=== PATIENT | female | born 1980 | race Caucasian/White ===

== ENCOUNTER → 2023-07-17 | Outpatient (CLI) | payer MEDICARE, MEDICAID, SELFPAY ==
--- NOTE | 2023-07-17 08:55 | MRI_ITS ---
STUDY: MRI CERVICAL SPINE WITHOUT CONTRAST REASON FOR EXAM: Female, 43 years old. Spondylosis with radiculopathy. TECHNIQUE: Standardized fat and water weighted pulse sequences were obtained in the sagittal and axial planes. COMPARISON: None FINDINGS: Normal foramen magnum and brainstem-cervical cord junction. Normal craniovertebral junction. Normal anterior atlantoaxial articulation. Normal odontoid process. Straightening of the C-spine curvature. Normal vertebral bodies and posterior osseous elements. C2-3: Normal endplates. Normal disc height, signal and morphology. Normal central canal and intervertebral neural foramina. C3-4: Normal endplates. Normal disc height, signal and morphology. Normal central canal and intervertebral neural foramina. C4-5: Normal endplates. Normal disc height, signal and morphology. Normal central canal and intervertebral neural foramina. C5-6: Normal endplates. Mild disc space narrowing. Mild ventral extradural defect due to posterior bulging annulus. Normal central canal and intervertebral neural foramina. C6-7: Normal endplates. Mild disc space height narrowing. Mild ventral extradural defects due to posterior bulging annulus. Normal central canal and intervertebral neural foramina. C7-T1: Normal endplates. Normal disc height, signal and morphology. Normal central canal and intervertebral neural foramina. T1-T2: (Sagittal only). Normal T1 inferior endplate. Old anterior wedge compression fracture of the upper T2 vertebral body causing increased anterior disc space height. No ventral extradural defect. The most central canal and intervertebral neural foramina. T2-T3: (Sagittal only). Normal T2 inferior endplate. Mild old anterior wedge compression fracture of the upper T3 vertebral body causing increased anterior disc space height. No ventral extradural defect. Normal central canal and intervertebral neural foramina. T3-T4 and T4-T5: (Sagittal only). Normal endplates. Normal disc height, signal and morphology. Normal central canal and intervertebral neural foramina. Normal cervical cord. Normal upper thoracic spinal cord. Normal excluded brainstem and cerebellum. Normal midline pituitary gland, suprasellar cistern and anterior third ventricle. Normal visualized soft tissue structures. MRI/Spine Cervical (Routine) IMPRESSION: 1. No MR evidence of cervical extruded disc fragment, disc protrusion, spinal stenosis or cervical nerve root displacement. 2. Old anterior compression fractures of the upper T2 vertebral body and the upper T3 vertebral body. 3. Normal cervical spinal cord. Electronically Signed: Wes Lee MD at 9:27 EDT ,
== END | disposition home or self-care (01) ==
LOC: MRI 08:55
PROVIDERS: PCP Physician Assistant Medical; Referring Provider Anesthesiology; Visit Provider Anesthesiology
DX: M47.22 Other spondylosis with radiculopathy, cervical region (principal)
CPT/HCPCS: 72141

== ENCOUNTER 2024-06-02 08:21 | Day surgery (SDC) | payer MEDICARE, MEDICAID, SELFPAY ==
--- NOTE | 2024-05-29 14:49 | PAT.ANE_ITS ---
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 When Was Last Pacemaker Check QUESTION #4 FULL TEXT: You/Your Family Experience fever (hyperthermia) with Anesthesia Last Oral Intake Last Oral intake: Last Oral Intake NPO since Meds taken in AM with sips of water? Meds patient instructed to take am of surgery PONV PONV - air carrier maintenance inspector: PONV - air carrier maintenance inspector Female Yes 05/29/24 13:46 HX of Motion Sickness No 05/29/24 13:46 HX of N/V After Surgery No 05/29/24 13:46 Non-Smoker No 05/29/24 13:46 Duration of Surgery greater Yes 05/29/24 13:46 than 60 minutes Number of Risk Factors 2 05/29/24 13:46 PONV Score Moderate Risk 05/29/24 13:46 Respiratory Assessment Respiratory Assessment - air carrier maintenance inspector: Respiratory Tract Infection Hx - air carrier maintenance inspector Hx Respiratory Tract Infection No 05/29/24 13:46 STOP Sleep Apnea STOP Sleep Apnea - air carrier maintenance inspector: STOP Sleep Apnea - air carrier maintenance inspector Hx Hypertension No 05/29/24 13:46 Hx Sleep Apnea No 05/29/24 13:46 CPAP BIPAP Do you snore loudly (louder No 05/29/24 13:46 than talking or can be heard Do you often feel tired/ No 05/29/24 13:46 fatigued/ sleepy during daytime? Has anyone observed you stop No 05/29/24 13:46 breathing during sleep? STOP Results Negative 05/29/24 13:46 QUESTION #5 FULL TEXT : Do you snore loudly (louder than talking or can be heard through closed doors)? 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 Specify any problems Hx of Preganancy in last 3 No 05/29/24 13:46 Months Nurse Filling Out Transfusion VCHRISTIN 05/29/24 13:46 & Questions: Date: 05/29/24 05/29/24 13:46 Time: 13:47 05/29/24 13:46 Patient unable to answer at this time (ie. confused, unrespo /Reproduction History /Reproductive History - air carrier maintenance inspector: /Reproductive Hx- air carrier maintenance inspector Hx Now No 05/29/24 13:46 Gestational Age (in weeks): EDC: Hx Hx Para Hx Section SAB No 05/29/24 13:46 [facility] Medical History (Updated 05/29/24 @ 13:45 by Charley Montano) Wears partial dentures Wears glasses Marijuana use Arthritis Easy bruising Excessive bleeding Back pain Injury of back Migraine headache History of IBS Gastric reflux Smoker Leg cramps History of echocardiogram History of stress test Hypertension History of heart attack Cardiology follow-up encounter History of irregular heartbeat History of steroid therapy Home Medications ?Medication ?Instructions ?Recorded ?Last Taken ?Type aspirin 81 mg tablet,delayed 81 mg PO DAILY 05/29/24 U nknown History release atomoxetine 60 mg capsule 60 mg PO DAILY 05/29/24 Unkn own History atorvastatin 80 mg tablet 80 mg PO QHS 05/29/24 Unknow n History biotin 1 mg capsule 1 mg PO DAILY 05/29/24 Unkno wn History clopidogrel 75 mg tablet 75 mg PO DAILY 05/29/24 Unkn own History evolocumab 140 mg/mL subcutaneous 140 mg subcut .Q2 WE EKS 05/29/24 Unknown History pen injector (Keenan Denny) famotidine 20 mg tablet 20 mg PO DAILY 05/29/24 Unkn own History fenofibrate nanocrystallized 145 145 mg PO DAILY 05/29 Unknown History mg tablet icosapent ethyl 1 gram capsule 2 g PO BID 05/29/24 Unk nown History magnesium 200 mg tablet 200 mg PO DAILY 05/29/24 Unk nown History metoprolol succinate 25 mg 25 mg PO QHS 05/29/24 Unkno wn History tablet,extended release 24 hr [id number] 1 cap PO DAILY 05/29/24 Unknown History pantoprazole 40 mg tablet,delayed 40 mg PO DAILY 05/29 Unknown History release pregabalin 150 mg capsule 150 mg PO TID PRN PRN pain 0 05/29/24 Unknown History tizanidine 4 mg tablet 4 - 8 mg PO TID PRN PRN musc le 05/29/24 Unknown History spasticity Allergy/AdvReac Type Severity Reaction Status Date / Time amoxicillin Allergy Severe PT UNSURE Verified 05/29/24 13:20 OF REACTION Penicillins (PCN) Allergy Severe PT UNSURE Verified 05/29/24 13:20 OF REACTION Surgical History (Updated 05/29/24 @ 13:45 by Charley Montano) History of cardiac catheterization History of coronary artery stent placement Social History Smoking Status: Current every day smoker tobacco type: cigarettes Audit: Pertinent Findings Pertinent Findings Consult pertinent findings: Cardiology 03/24/2024 follow-up for cardiovascular disease coronary artery disease status post PCI to RCA with 2 MARIN 09/22/2023 echo obtained 10/07/2023 showed normal with EF of 60 to 65% doing well stable Recommendation Anesthesia Recommendation Anesthesia recommendation: OPTIMIZED for anesthesia
[2024-06-02] VITALS (11 sets, daily range): BP systolic 87–114; BP diastolic 64–86; PULSE 71–90; RESP 16–18; TEMP 36.2–36.4; O2SAT 92–100; BMI 24.9
[2024-06-02] MEDS: 0.9% Normal Saline (1000mL) 1,000 ML 15 ML IV (09:01)
[2024-06-02] MEDS: Acetaminophen 500 MG Tablet 1000 MG PO (09:02)
[2024-06-02] MEDS: Gabapentin 600 MG Tablet PO (09:02)
[2024-06-02 09:13] LABS: Magnesium 2.3 mg/dL (1.6-2.6)
--- NOTE | 2024-06-02 09:15 | PCM.PRE.AN2 ---
ASA Classification* ASA Classification ASA Classification: 3 Assessment & Plan Anesthesia* Anesthesia Assessment Anesthesia Assessment: Discussed sedation and/or anesthesia options, risks, benefits, and alternatives with patient/parents/legal guardian/POA. Questions invited. The patient/parents/legal guardian/POA seems to understand and agrees to proceed with anesthesia plan. Reviewed the physical assessment, medical history, allergy history and patient home medications list prior to surgery/procedure/anesthetic and documented any changes. Performed airway and anesthesia risk assessments. 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 When Was Last Pacemaker Check QUESTION #4 FULL TEXT: You/Your Family Experience fever (hyperthermia) with Anesthesia Last Oral Intake Last Oral intake: Last Oral Intake NPO since 00:00 06/02/24 08:45 Meds taken in AM with sips of water? Meds patient instructed to take am of surgery PONV PONV - mechanical inspector: PONV - mechanical inspector Female Yes 05/29/24 13:46 HX of Motion Sickness No 05/29/24 13:46 HX of N/V After Surgery No 05/29/24 13:46 Non-Smoker No 05/29/24 13:46 Duration of Surgery greater Yes 05/29/24 13:46 than 60 minutes Number of Risk Factors 2 05/29/24 13:46 PONV Score Moderate Risk 05/29/24 13:46 Height & Weight Height & Weight: Anesthesia: Height & Weight Height 5 ft 4 in 06/02/24 08:45 Weight: 65.771 kg 06/02/24 08:45 Body Mass Index (BMI) 24.9 06/02/24 08:45 Respiratory Assessment Respiratory Assessment - mechanical inspector: Respiratory Tract Infection Hx - mechanical inspector Hx Respiratory Tract Infection No 05/29/24 13:46 STOP Sleep Apnea STOP Sleep Apnea - mechanical inspector: STOP Sleep Apnea - mechanical inspector Hx Hypertension No 05/29/24 13:46 Hx Sleep Apnea No 05/29/24 13:46 CPAP BIPAP Do you snore loudly (louder No 05/29/24 13:46 than talking or can be heard Do you often feel tired/ No 05/29/24 13:46 fatigued/ sleepy during daytime? Has anyone observed you stop No 05/29/24 13:46 breathing during sleep? STOP Results Negative 05/29/24 13:46 QUESTION #5 FULL TEXT : Do you snore loudly (louder than talking or can be heard through closed doors)? 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 Specify any problems Hx of Preganancy in last 3 No 05/29/24 13:46 Months Nurse Filling Out Transfusion VCHRISTIN 05/29/24 13:46 & Questions: Date: 05/29/24 05/29/24 13:46 Time: 13:47 05/29/24 13:46 Patient unable to answer at this time (ie. confused, unrespo /Reproduction History /Reproductive History - mechanical inspector: /Reproductive Hx- mechanical inspector Hx Now No 05/29/24 13:46 Gestational Age (in weeks): EDC: Hx Hx Para Hx Section SAB No 05/29/24 13:46 Active Medications Active Medications: Current Medications Generic Name Dose Route Start Last Admin Trade Name Freq PRN Reason Stop Dose Admin Acetaminophen 1,000 mg 06/02/24 10:30 06/02/24 09:02 Acetaminophen 500 Mg Tablet PO 06/02/24 10:31 1,000 mg X1 ONE Administration Gabapentin 600 mg 06/02/24 10:30 06/02/24 09:02 Gabapentin 600 Mg Tablet PO 06/02/24 10:31 600 mg X1 ONE Administration Clindamycin Phosphate 900 mg in 50 mls @ 75 mls/hr 06/02/24 10:30 Cleocin IV 06/02/24 11:09 PREOP ONE Sodium Chloride 1,000 mls @ 15 mls/hr 06/02/24 08:30 06/02/24 09:01 IV 06/07/24 21:49 15 mls/hr .Q48H PRANAY Administration Protocol Insulin Human Lispro 1 - 6 unit 06/02/24 10:30 Insulin Lispro 100 Unit/Ml Insuln.Pen SC 06/02/24 16:00 Q4H PRN PRN BG>/= 180, SEE PROTOCOL Protocol PFSH Medical History Wears partial dentures Wears glasses Marijuana use Arthritis Easy bruising Excessive bleeding Back pain Injury of back Migraine headache History of IBS Gastric reflux Smoker Leg cramps History of echocardiogram History of stress test Hypertension History of heart attack Cardiology follow-up encounter History of irregular heartbeat History of steroid therapy Home Medications ?Medication ?Instructions ?Recorded ?Last Taken ?Type aspirin 81 mg tablet,delayed 81 mg PO DAILY 05/29/24 05/29/24 History release atomoxetine 60 mg capsule 60 mg PO DAILY 05/29/24 Unknown History atorvastatin 80 mg tablet 80 mg PO QHS 05/29/24 06/01/24 History biotin 1 mg capsule 1 mg PO DAILY 05/29/24 Unknown History clopidogrel 75 mg tablet 75 mg PO DAILY 05/29/24 05/29/24 History evolocumab 140 mg/mL subcutaneous 140 mg subcut .Q2 WEEKS 05/29/24 05/14/24 History pen injector (Keenan Denny) famotidine 20 mg tablet 20 mg PO DAILY 05/29/24 Unknown History fenofibrate nanocrystallized 145 145 mg PO DAILY 05/29/24 Unknown History mg tablet icosapent ethyl 1 gram capsule 2 g PO BID 05/29/24 Unknown History magnesium 200 mg tablet 200 mg PO DAILY 05/29/24 Unknown History metoprolol succinate 25 mg 25 mg PO QHS 05/29/24 05/29/24 History tablet,extended release 24 hr [id number] 1 cap PO DAILY 05/29/24 Unknown History pantoprazole 40 mg tablet,delayed 40 mg PO DAILY 05/29/24 Unknown History release pregabalin 150 mg capsule 150 mg PO TID PRN PRN pain 05/29/24 06/01/24 History tizanidine 4 mg tablet 4 - 8 mg PO TID PRN PRN muscle 05/29/24 Unknown History spasticity Allergy/AdvReac Type Severity Reaction Status Date / Time amoxicillin Allergy Severe PT UNSURE Verified 06/02/24 08:40 OF REACTION Penicillins (PCN) Allergy Severe PT UNSURE Verified 06/02/24 08:40 OF REACTION Surgical History Hx of tubal ligation History of cardiac catheterization History of coronary artery stent placement Social History Smoking Status: Current every day smoker tobacco type: cigarettes Review of Systems (Anesthesia) ROS Narrative System reviewed and no additional complaints, except as documented.
[2024-06-02 09:19] LABS: Vitamin D,25 Hydroxy 30.6 ng/mL
[2024-06-02] MEDS: Magnesium 1 GM over 15 mins IV (09:30)
--- NOTE | 2024-06-02 09:30 | RAD_ITS ---
Fluoroscopic guidance was used intraoperatively. Please refer to the operative report further details. Total fluoroscopy time 120 seconds. Total radiation dose 2.85 mGy. Reading Location: [facility]
[2024-06-02 09:50] LABS: Bedside Glucose 109 mg/dL (74-106)
[2024-06-02] MEDS: Thrombin 5,000 IU Kit (PSA) 5,000 IU Vial 5000 IU TOPICAL (10:37)
[2024-06-02] MEDS: Clindamycin 900 MG/50 ML BAG 75 MG IV (11:02)
[2024-06-02] MEDS: Heparin 10,000 UNITS/10 ML Vial 10000 UNITS (11:42)
[2024-06-02] MEDS: Calcium Chloride 1 GM/10 ML Syringe (11:43)
[2024-06-02] MEDS: Bupivacaine Mpf 0.5% 30 ML VIAL (12:34)
--- NOTE | 2024-06-02 13:09 | OP.PCM_ITS ---
Problems Associated Problem List Diagnoses (1) Other specified congenital deformities of feet: (2) Instability of left ankle joint: (3) Pain in left foot: Operative Report (Standard) Operative Information Date of Procedure: 06/02/24 Pre-Operative Diagnosis: 1. Pain, left foot 2. Congenital foot deformity, calcaneal navicular coalition, left foot 3. Ankle instability, left lower extremity Post-Operative Diagnosis: 1. Pain, left foot 2. Congenital foot deformity, calcaneal navicular coalition, left foot 3. Ankle instability, left lower extremity Surgery/Procedure Performed: Procedure #1: Wells Tannery of bone marrow aspirate concentrate, left foot Procedure #2: Excision of tarsal coalition, left foot Procedure #3: Repair of the anterior talofibular ligament, left lower extremity Procedure #4: Application of posterior splint, left lower extremity rigger chief: Yes Drawing Box Tender: RC Wisdom Tasks completed by first aid instructor: Closing and Implanting device Type of Anesthesia: Block,Regional, General and Local RN Documented Start/Stop Times: Operation Date: 06/02/24 10:30 Case Time Into Pre-Op 06/02/24 08:26 Anesthesia Start 06/02/24 11:02 Into Room 06/02/24 11:02 Procedure Start 06/02/24 11:18 Procedure End 06/02/24 12:59 Into Recovery Procedure Start Time: 11:18 Procedure Stop Time: 12:59 Select all DRAINS/GRAFTS/IMPLANTS that apply: Graft Graft details: BMAC, 1 cc Viaflow , Tissue (Bone wax) Tissue details: Bone wax, bmac and Implanted device (3.5 Citrafix anchors) Implanted device details: 3.5 Citrafix anchors Special Medications: Per anesthesia Estimated Blood Loss: 10 mL Fluids Replaced: Per anesthesia Specimen collected: No Description of surgery: Indications For Operation: Ms. Duran is a 44-year-old who was admitted to [facility] for left foot surgery consisting of congenital abnormality called a calcaneonavicular coalition and left lower extremity ankle instability. Patient has been seen and treated in the office conservatively for the multiple visits. Since the patient has not gotten better with conservative treatment and home physical therapy a MRI was ordered that diagnosed the patient with a fibrous calcaneonavicular coalition. The patient also had evidence of instability in the office as well as with daily activities suffering from constant ankle sprains. After we have discussed conservative versus surgical treatment, the patient elected to move forward with left lower extremity surgery as stated above. All risk and benefits were discussed with the patient in great detail. Chart reviewed and consent signed. Due to continued pain to left lower extremity and instability to the left ankle it was deemed necessary at this time to take the patient to the operating room to perform the above procedure to help stabilize her ankle and relieve her constant pain.. The nature of the problem, anticipated procedures, postop recovery/convalences and risk/complications include but not limited to infection, wound healing complications, digital amputation, hypertrophic scarring, numbness, tingling, chronic pain, CRPS, over and under correction, recurrence of deformity, DVT and or PE and the need for further surgery have been discussed in great detail with the patient. All questions have been answered to the patient's satisfaction. There are no guarantees given as to the outcome of the procedure. Description of Procedure: Under mild sedation, the patient was brought into the operating room and placed on the operating table in supine position. Once the patient was under general anesthesia with laryngeal mask airway, the right lower extremity was blocked using approximately 10 cc 0.5% Marcaine plain. Prior to the procedure the patient received a popliteal block per anesthesia in the PACU please see anesthesia note for further detail. Next, a well-padded thigh tourniquet was applied to the left lower extremity. Next, the left lower extremity was prepped and draped in normal aseptic manner. Next, a timeout was then undertaken verifying the correct patient, extremity, visibility of preoperative markings, availability of the equipment. Procedure #1: Wells Tannery of bone marrow aspirate concentrate, left foot (CPT code: 78683) Next, attention was directed to the lateral aspect of the left heel. Using the Jamshidi needle and mallet the trocar was advanced through the wall of the lateral calcaneus and once implanted 60 cc of bone marrow aspirate concentrate was harvested and passed back table to be spun down to be used later in the case. Next, attention was directed to the left lower extremity. Using a 4 inch Esmarch, left lower extremity was exsanguinated and elevated to 60 degrees for 1 minute. Procedure #2: Excision of tarsal coalition, left foot (CPT code: 04452) Next, using to the arm fluoroscopy the calcaneal navicular coalition was marked out. Using a Olliers incision over the sinus tarsi using a sterile skin marker. Using a #15 blade a full-thickness incision down to subcutaneous tissue was performed with care to observe the superficial peroneal nerve as well as to keep it protected. Continued blunt dissection was carried down to the level of the extensor and digitorum brevis muscle belly. Once the belly was identified a incision was used to remove the muscle belly from its origin. Using retraction the coalition was identified and fibrous gelatinous material was evacuated from the coalition area. Using a combination of osteotomes and mallet, the coalition was freed from the calcaneus anterior process and the lateral aspect of the navicular, removing approximately 1 cm of bone. The area was flushed with copious normal saline. The removal was checked on C arm fluoroscopy in many views. Bone wax was applied to the calcaneus and navicular. The extensor digitorum brevis muscle belly was interposed into the defect and the remaining muscle belly was sutured back into place. The subcutaneous layer was reapproximated closed using 3-0 Monocryl and running locking suture technique. Procedure #3: Repair of the anterior talofibular ligament, left lower extremity (CPT code: 09165) Next, attention was directed to the level of the fibula. Using a sterile skin marker the incision was marked out for repair of the anterior talofibular ligament. Using a #15 blade a full-thickness vision down to subcutaneous tissue was performed. Using a Townsend elevator a small pocket was placed distally advancing the Townsend approximately, to safely create a full-thickness flap using a #15 blade. Once the flap was made, the ATFL was exposed and show evidence of instability with forced talar tilt using C arm fluoroscopy. There showed approximately 5 degrees of tilt with stress test during the time of the procedure. The collateral ligaments on the fibula and talus were freed with a #15 blade. A rongeur was used to roughen up the distal fibula. 2 Citrsfix 3.5 mm implants with #2 FiberWire were implanted 1 5 mm proximal from the [place] and the other 1 mm proximal from the initial implant. Using a free needle, pants over vest technique was performed securing the ATFL and soft tissue back into place followed by multiple over and over stitches as were eventually hand tied into place. The left lower extremity ankle was stressed and showed no movement of the talus at that time. The incision was flushed with copious normal saline. The subcutaneous layer was reapproximated and closed using 3-0 Monocryl and running locking suture technique. At this time the left lower extremity thigh tourniquet was deflated and reperfusion was noted instantly to the left lower extremity. All bleeders were cauterized and ligated as necessary. The skin on both incisions were reapproximated closed using 3-0 nylon in simple interrupted suture technique. Next, bone marrow aspirate concentrate was injected to the level of the ATFL of the left lower extremity. Procedure #4: Application of posterior splint, left lower extremity (CPT code: 81852) Next, the left lower extremities were cleaned and patted dry. PPP spray was applied to all incisions followed by Betadine soaked Adaptic dry sterile dressing and double layer Miller AO splint was applied at 90 degrees to the left lower extremity. The patient tolerated the procedure and anesthesia well and apparent satisfactory condition and was transported to the PACU for further monitoring prior to discharge home. Vital signs stable and vascular status intact to all digits bilateral. Post Operative Plan: Weightbearing: Nonweightbearing to left lower extremity with assistive crutches and or knee scooter. Full weightbearing right lower extremity. Antibiotics: 900 mg of clindamycin through the IV DVT Prophylaxis: Plavix and aspirin Camilo: None Dressing: PPP spray, Betadine soaked Adaptic, dry sterile dressing, double layer Miller AO splint at 90 degrees. X-Rays: Post-operative films taken on the operating room. Pain Medication: Percocet 5/325, Flexeril 10 mg Follow-up: Patient will follow-up 1 week in private office for evaluation and dressing change. Surgical Findings: 1. Evidence of fibrous coalition that was resected in total. Resection was confirmed with large C-arm fluoroscopy. 2. Mild instability of the collateral ligament to the level of the ATFL as tested with stress view C arm radiographs. Successful repair of the ATFL with Citrafix anchors. Complications Complications: No Admit VTE Documentation VTE Present on Admission: No VTE Mechan Device Prophylaxis: SCD's VTE Pharm Prophylaxis ordered?: Yes
--- NOTE | 2024-06-02 13:18 | PCM.POST.ANE ---
Anesthesia: Postop Eval I Current Vital Signs Temperature: 97.4 F Pulse Rate: 90 Blood Pressure: 97/68 Respiratory Rate: 18 Pulse Ox: 100 Oxygen Delivery Method: Room Air Assessment Airway patent: Yes Spontaneous unlabored respirations: Yes Mental status: Awake and Calm nausea: No Vomiting: No Anesthesia Complication: No Fluid Hydration Crystalloid volume administer (ml): 700 Total IV fluid infused: 700 Progress Note Anesthesia document: Postop Eval 1 completed: Yes
[2024-06-02] MEDS: Ketorolac 15 MG/ML Vial IV (14:49)
[2024-06-02] MEDS: oxyCODONE 5 MG Tablet PO (14:49)
--- NOTE | 2024-06-02 21:59 | POSTOPAN2_ITS ---
Anesthesia Postop Eval I Sum Postop Eval Completion status Anesthesia document: Postop Eval 1 completed: Yes Anesthesia Postop Eval I Summary Anesthesia Postop Eval I Summary: Anesthesia Postop Eval I: Assessment Summary Airway patent Yes 06/02/24 13:19 MARKET RESEARCH EXECUTIVE.[email or web address] Spontaneous unlabored Yes 06/02/24 13:19 MARKET RESEARCH EXECUTIVE.ENEDINA respirations Mental status Awake,Calm 06/02/24 13:19 MARKET RESEARCH EXECUTIVE.[email or web address] nausea No 06/02/24 13:19 MARKET RESEARCH EXECUTIVE.[email or web address] Vomiting No 06/02/24 13:19 MARKET RESEARCH EXECUTIVE.[email or web address] Anesthesia Postop Eval I: Fluid Summary Crystalloid volume administer 700 06/02/24 13:19 MARKET RESEARCH EXECUTIVE.SKOBY (ml) Colloids volume administered ( ml) Blood Product volume administered (ml) Total IV fluid infused 700 06/02/24 13:19 MARKET RESEARCH EXECUTIVE.[email or web address] Anesthesia Postop Eval I: Summary Notes Anesthesia Complication No 06/02/24 13:19 MARKET RESEARCH EXECUTIVE.ENEDINA Anesthesia Complication Comment: Post-operative progress note Anesthesia: Postop Eval II Evaluation Mental status: Awake and Calm Pain Level: 1 nausea: No Vomiting: No Complications Anesthesia Complication: No
--- NOTE | 2024-06-02 21:59 | PCM.POSTANE2 ---
Anesthesia Postop Eval I Sum Postop Eval Completion status Anesthesia document: Postop Eval 1 completed: Yes Anesthesia Postop Eval I Summary Anesthesia Postop Eval I Summary: Anesthesia Postop Eval I: Assessment Summary Airway patent Yes 06/02/24 13:19 INSTRUCTIONAL SUPPORT SERVICES DIRECTOR.[email or web address] Spontaneous unlabored Yes 06/02/24 13:19 INSTRUCTIONAL SUPPORT SERVICES DIRECTOR.ENEDINA respirations Mental status Awake,Calm 06/02/24 13:19 INSTRUCTIONAL SUPPORT SERVICES DIRECTOR.[email or web address] nausea No 06/02/24 13:19 INSTRUCTIONAL SUPPORT SERVICES DIRECTOR.[email or web address] Vomiting No 06/02/24 13:19 INSTRUCTIONAL SUPPORT SERVICES DIRECTOR.[email or web address] Anesthesia Postop Eval I: Fluid Summary Crystalloid volume administer 700 06/02/24 13:19 INSTRUCTIONAL SUPPORT SERVICES DIRECTOR.SKOBY (ml) Colloids volume administered ( ml) Blood Product volume administered (ml) Total IV fluid infused 700 06/02/24 13:19 INSTRUCTIONAL SUPPORT SERVICES DIRECTOR.[email or web address] Anesthesia Postop Eval I: Summary Notes Anesthesia Complication No 06/02/24 13:19 INSTRUCTIONAL SUPPORT SERVICES DIRECTOR.ENEDINA Anesthesia Complication Comment: Post-operative progress note Anesthesia: Postop Eval II Evaluation Mental status: Awake and Calm Pain Level: 1 nausea: No Vomiting: No Complications Anesthesia Complication: No
[2024-06-06 09:08] LABS: Cotinine Screen Blood 148.1 ng/mL (.); Nicotine Blood 11.3 ng/mL (.)
== END 2024-06-02 15:39 | disposition home or self-care (01) ==
LOC: SDC 08:23 → AC 08:26
PROVIDERS: Anesthesiology; PCP Physician Assistant Medical; Referring Provider Podiatrist Foot & Ankle Surgery; Visit Provider Podiatrist Foot & Ankle Surgery
PROC: (CPT 28116; principal; 2024-06-02 10:15)
DX: Q66.92 Congenital deformity of feet, unspecified, left foot (principal); M25.372 Other instability, left ankle; I25.10 Atherosclerotic heart disease of native coronary artery without angina pectoris; Z79.82 Long term (current) use of aspirin; Z79.899 Other long term (current) drug therapy; Z79.01 Long term (current) use of anticoagulants; Z95.5 Presence of coronary angioplasty implant and graft
CPT/HCPCS: 28116; 38220; 27695; 64450; 01480; 73620; 76000; 80323; 82306; 82962; 83735; 87081; C1713; G0480; J2405; J3475